=== PATIENT | female | born 2005 | race African-American/Black ===

== ENCOUNTER 2024-05-17 16:41 | Emergency (ER) | payer OTHER, MEDICAID ==
[~2024-05-17] VITALS: Ht 162.6 cm; Wt 60.0 kg
--- NOTE | 2024-05-17 16:48 | ED.PDOC ---
History of Present Illness HPI Comments 19-year-old female with no reported PMHx brought in by EMS presents with a chief complaint of "body pain" x4 months. Patient states that her body is "broken" inside and that her spine is keeping her alive. Patient mentions that this has been going on for about 4 months and states that she was seen for it before in the past and was told that she needs therapy. Patient is tearful upon triage. No other symptoms or modifying factors present at this time. Time Seen by MD: 16:43 Reviewed Notes: Medications, Allergies Allergies: Coded Allergies: NO KNOWN ALLERGIES (Unverified , 05/17/24) Information Source: Patient Mode of Arrival: EMS Severity: Moderate Timing: Months Duration: Intermittent Prehospital treatment: None Past Medical History PAST MEDICAL HISTORY: Denies Surgical History: Denies all surgeries COMMERCIAL INTERNSHIP History: Denies all COMMERCIAL INTERNSHIP Hx Family History Family History: Reviewed,noncontributory to illness Social History Smoker: Non-Smoker Alcohol: Denies ETOH Use Drugs: Marijuana Lives In: Home Constitutional: denies: chills, diaphoresis, fatigue, fever, malaise, sweats, weakness, others EENTM: denies: blurred vision, double vision, ear bleeding, ear discharge, ear drainage, ear pain, ear ringing, eye pain, eye redness, hearing loss, mouth pain, mouth swelling, nasal discharge, nose bleeding, nose congestion, nose pain, photophobia, tearing, throat pain, throat swelling, voice changes, others Respiratory: denies: cough, hemoptysis, orthopnea, SOB at rest, shortness of breath, SOB with excertion, stridor, wheezing, others Cardiovascular: denies: chest pain, dizzy spells, diaphoresis, Dyspnea on exertion, edema, irregular heart beat, left arm pain, lightheadedness, palpitations, PND, syncope, others Gastrointestinal: denies: abdomen distended, abdominal pain, blood streaked bowels, constipated, diarrhea, dysphagia, difficulty swallowing, hematemesis, melena, nausea, poor appetite, poor fluid intake, rectal bleeding, rectal pain, vomiting, others Genitourinary: denies: abnormal vagina bleeding, burning, dyspareunia, dysuria, flank pain, frequency, hematuria, incontinence, pain, , vagina discharge, urgency, others Neurological: denies: dizziness, fainting, headache, left sided numbness, left sided weakness, numbness, paresthesia, pre-existing deficit, right sided numbness, right sided weakness, seizure, speech problems, tingling, tremors, weakness, others Musculoskeletal: reports: muscle pain; denies: back pain, gout, joint pain, joint swelling, muscle stiffness, neck pain, others Integumetry: denies: bruises, change in color, change in hair/nails, dryness, laceration, lesions, lumps, rash, wounds, others Allergic/Immunocompromised: denies: Difficulty Healing, Frequent Infections, Hives, Itching, others Hematologic/Lymphatic: denies: anemia, blood clots, easy bleeding, easy bruising, swollen glands, others Endocrine: denies: excessive hunger, excessive sweating, excessive thirst, excessive urination, flushing, intolerance to cold, intolerance to heat, unexplained weight gain, unexplained weight loss, others Psychiatric: denies: anxiety, bipolar disorder, depression, hopeless, panic disorder, schizophrenia, sleepless, suicidal, others All Other Systems: Reviewed and Negative Physical Exam General Appearance: Moderate Distress HEENT: Normal ENT Inspection, Pharynx Normal, TMs Normal Neck: Full Range of Motion, Non-Tender, Normal, Normal Inspection Respiratory: Chest Non-Tender, Lungs Clear, No Accessory Muscle Use, No Respiratory Distress, Normal Breath Sounds Cardiovascular: No Edema, No JVD, No Murmur, No Gallop, Normal Peripheral Pulses, Regular Rate/Rhythm Breast Exam: Deferred Gastrointestinal: No Organomegaly, Non Tender, No Pulsatile Mass, Normal Bowel Sounds, Soft Genitalia: Deferred Pelvic: Deferred Rectal: Deferred Extremities: No calf tenderness, Normal capillary refill, No pedal edema Musculoskeletal : Apperance: Normal Neurologic: Alert, residential treatment staff II-XII nml as Tested, No Motor Deficits, Normal Affect, Normal Mood, No Sensory Deficits Cerebellar Function: Normal Reflexes: Normal Skin: Dry, Normal Color, Warm Lymphatic: No Adenopathy Was a procedure done? Was a procedure done?: No Differential Dx Considerations may include: Psychiatric behavior, schizophrenia, bipolar disorder X-Ray, Labs, Meds, VS Vital Signs Date Time Temp Pulse Resp B/P (MAP) Pulse Ox O2 Delivery O2 Flow Rate FiO2 05/17/24 17:27 115 22 97 Room Air* 0 21 05/17/24 17:26 98.2 119 22 130/79 (96) 97 98.2 05/17/24 16:46 98.2 126 18 120/71 (87) 98 98.2 Lab Test 05/17/24 17:48 05/17/24 17:10 Range/Units Urine Color Colorless Yellow Urine Clarity Clear Clear Urine pH 5.0 5.0-9.0 Urine Specific Bryant 1.002 1.001-1.035 Urine Protein Negative Negative Urine Ketones Negative Negative Urine Blood Negative Negative /uL Urine Nitrite Negative Negative Urine Bilirubin Negative Negative Urine Urobilinogen Normal Negative mg/dL Urine Leukocyte Esterase Negative Negative /uL Urine RBC <1 0 - 4 /hpf Urine Microscopic WBC 1 0-5 /HPF Urine Squamous Epithelial Cells Few <5 /hpf Urine Bacteria Few H None Seen /hpf Urine Glucose Normal Normal mg/dL Urine Test Negative Negative Urine Opiates Screen Neg NEGATIVE Urine Fentanyl Screen Neg NEGATIVE Urine Barbiturates Screen Neg NEGATIVE Urine Phencyclidine Screen Neg NEGATIVE Urine Amphetamines Screen Neg NEGATIVE Urine Benzodiazepines Screen Neg NEGATIVE Urine Cocaine Screen Neg NEGATIVE Urine Cannabinoids Screen Pos NEGATIVE White Blood Count 11.1 H 4.4-10.8 10^3/uL Red Blood Count 4.31 4.0-5.20 10^6/uL Hemoglobin 13.2 12.2-16.2 g/dL Hematocrit 39.7 36.0-46.0 % Mean Corpuscular Volume 92.0 80.0-100.0 fL Mean Corpuscular Hemoglobin 30.5 28.0-32.0 pg Mean Corpuscular Hemoglobin Concent 33.2 32.0-36.0 g/dL Red Cell Distribution Width 12.9 11.8-14.3 % Platelet Count 262 140-450 10^3/uL Mean Platelet Volume 9.6 6.9-10.8 fL Neutrophils (%) (Auto) 84.5 H 37.0-80.0 % Lymphocytes (%) (Auto) 10.2 10.0-50.0 % Monocytes (%) (Auto) 5.1 0.0-12.0 % Eosinophils (%) (Auto) 0.0 0.0-7.0 % Basophils (%) (Auto) 0.2 0.0-2.0 % Neutrophils # (Auto) 9.4 H 1.6-8.6 10 ^3/uL Lymphocytes # (Auto) 1.1 0.4-5.4 10 ^3/uL Monocytes # (Auto) 0.6 0-1.3 10 ^3/uL Eosinophils # (Auto) 0 0-0.8 10 ^3/uL Basophils # (Auto) 0 0-0.2 10 ^3/uL Nucleated Red Blood Cells 0.1 % Sodium Level 134 L 136-145 mmol/L Potassium Level 3.7 3.5-5.1 mmol/L Chloride Level 101 98-107 mmol/L Carbon Dioxide Level 20 20-31 mmol/L Anion Gap 13 5-15 Blood Urea Nitrogen 14 9-23 mg/dL Creatinine 0.89 0.550-1.02 mg/dL Glomerular Filtration Rate Calc 95 >90 mL/min BUN/Creatinine Ratio 15.7 10.0-20.0 Serum Glucose 107 H 74-106 mg/dL Calcium Level 10.5 H 8.7-10.4 mg/dL Current Medications Medications (Trade) Dose Ordered Sig/Shad Route Start Time Stop Time Status Last Admin Sodium Chloride 1,000 ml @ 1,000 mls/hr Q1H ONCE IVB 05/17/24 17:00 05/17/24 17:59 DC 05/17/24 17:40 Lorazepam (Ativan Inj) 1 mg ONCE ONCE IV 05/17/24 17:00 05/17/24 17:01 DC 05/17/24 17:35 IV Hep-Lock was established The patient was given 1 L bolus of normal saline The patient was given Ativan 1 mg IV push. The patient's urine tox is positive for marijuana The chemistry panel is within normal limits The urine test is negative for infection At this time the patient was being evaluated by the telemedicine psychiatrist The patient has been medically cleared Time of 1ST Reevaluation: 17:13 Reevaluation 1ST: Unchanged Patient Education/Counseling: Diagnosis, Treatment, Prognosis Family Education/Counseling: No Family Present Departure 1 Departure Time of Disposition: 19:02 Impression: Primary Impression: Marijuana use Additional Impression: Psychosis Qualified Codes: F29 - Unspecified psychosis not due to a substance or known physiological condition Disposition: 30 STILL A PATIENT Condition: Fair Critical Care Note Critical Care Time?: No Stability Stability form required: No Heart Score Heart Score: Heart Score Response (Comments) Value History N/A 0 EKG N/A 0 Age N/A 0 Risk Factors N/A 0 Troponin N/A 0 Total 0 I personally scribed for SNEHA SUTTON MD ([email or web address]) on 05/17/24 at 16:48. Electronically submitted by Torey Bain ([email or web address]). SNEHA SUTTON MD May 17, 2024 16:48
[2024-05-17 17:27] VITALS: PULSE 115; RESP 22; O2SAT 97
[2024-05-17 17:31] LABS: Basophils # (auto) 0 10 ^3/uL (0-0.2); Basophils % (auto) 0.2 % (0.0-2.0); Eosinophils # (auto) 0 10 ^3/uL (0-0.8); Hematocrit 39.7 % (36.0-46.0); Hemoglobin 13.2 g/dL (12.2-16.2); Lymphocytes # (auto) 1.1 10 ^3/uL (0.4-5.4); Lymphocytes % (auto) 10.2 % (10.0-50.0); Mean Corpuscular Hemoglobin 30.5 pg (28.0-32.0); Mean Corpuscular Hgb Conc. 33.2 g/dL (32.0-36.0); Monocytes # (auto) 0.6 10 ^3/uL (0-1.3); Monocytes % (auto) 5.1 % (0.0-12.0); Neutrophils # (auto) 9.4 10 ^3/uL (1.6-8.6); Neutrophils % (auto) 84.5 % (37.0-80.0); Nucleated Red Blood Cells % 0.1 %; Platelet Count (auto) 262 10^3/uL (140-450); Red Blood Cells 4.31 10^6/uL (4.0-5.20); Red Cell Distribution Width 12.9 % (11.8-14.3); White Blood Cell 11.1 10^3/uL (4.4-10.8)
[2024-05-17] MEDS: LORazepam 2MG/ML-1ML VIAL IV ONE (17:35)
[2024-05-17 17:36] LABS: Chloride 101 mmol/L (98-107); Potassium 3.7 mmol/L (3.5-5.1)
[2024-05-17 17:37] LABS: Anion Gap 13 (5-15)
[2024-05-17] MEDS: SODIUM CHLORIDE 0.9% 1,000 ML IVB ONE (17:40)
[2024-05-17 17:43] LABS: BUN/Creatinine Ratio 15.7 (10.0-20.0); Blood Urea Nitrogen 14 mg/dL (9-23)
[2024-05-17 17:53] LABS: Calcium 10.5 mg/dL (8.7-10.4); Carbon Dioxide 20 mmol/L (20-31); Glucose 107 mg/dL (74-106); Sodium 134 mmol/L (136-145)
[2024-05-17 18:25] LABS: Urine Bacteria FEW /hpf (None Seen); Urine Blood Negative /uL (Negative); Urine Clarity Clear (Clear); Urine Color Colorless (Yellow); Urine Protein, UAD Negative (Negative); Urine Specific Gravity 1.002 (1.001-1.035); Urine Squamous Epithelial Cell FEW /hpf (<5); Urine Urobilinogen Normal (Negative); Urine WBC 1 /HPF (0-5)
[2024-05-17 18:30] LABS: Cannabinoid Screen, Urine Pos (NEGATIVE)
[2024-05-17 18:38] LABS: Amphetamine Screen, Urine Neg (NEGATIVE); Barbiturate Scree,Urine Neg (NEGATIVE); Benzodiazephine Screen, Urine Neg (NEGATIVE); Cocaine Screen, Urine Neg (NEGATIVE); Opiate Scree,Urine Neg (NEGATIVE); Phencyclidine Screen, Urine Neg (NEGATIVE)
[2024-05-17 21:10] VITALS: PULSE 89; RESP 18; O2SAT 98
--- NOTE | 2024-05-18 02:13 | DVHINCON2 ---
Date of Service if different f: May 18, 2024 Time of Service: 01:16 Consult Consult Note PSYCHIATRY ED NEW CONSULT HPI: 19 yo F pt with no known PPH presents to ED BIBA for safety, psychiatric stabilization and possible med initiation/optimization in setting of anxiety and somatic delusions. Psychiatry consulted for safety evaluation and recommendations in context of current presentation Per pt, reports over past four months, pt has been experiencing worsening body pain and her body is "broken" inside and feels like her body is made out of liquid and she is going to and her spine is keeping her alive and "i am scared to move because my body can snap anytime, i can feel my head breaking" Per brother (at bedside), pt has been experiencing depressed mood, isolative, loss of interest, decreased energy, and amotivation and anxiety symptoms to include excessive worry, rumination/overthinking, restlessness, racing/intrusive thoughts, feeling tensed/nervous, etc. Also intermittent SI that are fleeting with no plan/intent. Reports some interference with daily functioning. Reports primary stress as "my environment" due to arguments with family members Pt currently does not have psychiatrist/therapist out in community although has sought outpt MH services in past. Currently not on any psychotropic agents. No prior psych med trials. Infreq THC use, denies ETOH or IDU [employer] Never , no children, unemployed for past 4 months, lives with extended family members, HS grad, no legal issues, some support system noted (immediate family). Unknown trauma hx. Unknown FH No identifiable medical issues, hx of seizures/TBI, or recent head injuries, NKDA Does not have hx of suicide attempts, SIB/PSG, or prior psych hospitalizations/5150. Denies history of violence, unprovoked aggression, or assaultive behaviors. Denies recent hx of impulsivity, attention seeking behaviors, anger outbursts, emotional dysregulation, mood reactivity or engaging in risky behaviors. Does not have access to firearms. Currently denies SI/HI. Identifies self/family as PPF. No safety concerns noted during encounter. MSE: General Appearance/Behavior: Alert and awake; appears stated age, well developed, fair grooming and hygiene; calm and cooperative, fair eye contact, no PMA/PMR Speech: coherent, rrr Thought Process: linear, logical, bit concrete/limited Thought Content: Abnormal Thoughts and Perceptions: + somatic delusions Homicidality / Violent Thoughts: None Suicidality: adamantly denies SI Hallucinations: denies AVH Delusions: somatic delusions Obsessions /compulsions : None Judgment and Insight: fair/marginal Mood & Affect: "really scared" with mood-congruent, appropriate Orientation: oriented to person, place, time Attention/Concentration: appears intact Memory: grossly intact Language: no unusual or inappropriate language Assessment: 19 yo F pt with no known PPH presents to ED BIBA for safety, psychiatric stabilization and possible med initiation/optimization in setting of anxiety and somatic delusions Currently denies SI/HI/AVH. Pt presents with somatic delusions (see hpi) for past several months. Pt has been medically cleared Not on any psychotropics. No outpt MH services at present Pt will benefit from inpatient psychiatric admission for safety, psychiatric stabilization and possible medication initiation/optimization. Pt willing to transfer to inpt psych hospitalization voluntarily. Consider 5150 hold for DTS ONLY if needed for transfer or if no voluntary beds are available Primary Diagnosis: Psychotic disorder unspecified. R/o Delusional disorder, somatic type Recommend VOL transfer to inpt psych facility for higher level of care per pts request. Consider 5150 hold for DTS ONLY if needed for transfer or if no voluntary beds are available 1:1 sitter is recommended Recommend starting Olanzapine 5 mg bid - first dose now Risks/benefits/alternative treatments discussed, informed consent provided by pt If patient later refuses voluntary hospitalization/ requests to be discharged from ED prior to transfer, please reconsult telepsych services to evaluate for 5150 hold. Pt verbalized understanding and is receptive to above tx plan This case was discussed with ED nurse/provider and all parties in agreement with above tx plan Ney Wilde MD Plan discussed with: Patient NEY WILDE MD May 18, 2024 02:13
--- NOTE | 2024-05-18 03:17 | DVH ---
EXAM: CT HEAD WITHOUT CONTRAST INDICATION: headache TECHNIQUE: CT of the head without intravenous contrast. Radiation Dose : 1. Head: CT Dose: CTDI volume is mGy. Dose-length product is mGy*cm The dose indicators for CT are the volume Computed Tomography (CT) Dose Index (CTDIvol) and the Dose Length Product (DLP), and are measured in units of mGy and mGy-cm, respectively. These indicators are not patient dose, but values generated from the CT scanner acquisition factors. The report includes radiation exposure data for exposures received during this examination. COMPARISON: None FINDINGS: There is no evidence of acute intracranial hemorrhage, extra-axial collection, mass effect, midline s hift, herniation or hydrocephalus. The ventricles, sulci and cisterns are age appropriate. The ugarte-white differentiation is intact. The visualized paranasal sinuses and mastoid air cells are clear. The surrounding soft tissues and osseous structures are unremarkable. IMPRESSION: 1. No acute intracranial abnormality. Radiation optimization: All CT scans at this facility use at least one of these dose optimization anibal hniques: automated exposure control mA and/or kV adjustment per patient size (includes targeted exam s where dose is matched to clinical indication) or iterative reconstruction.
[2024-05-18 07:39] VITALS: PULSE 78; RESP 19; O2SAT 96
[2024-05-18] MEDS: OLANZapine 5 MG TAB PO SCH (09:49)
[2024-05-18 11:10] VITALS: PULSE 84; RESP 16; O2SAT 100
[2024-05-18 19:45] VITALS: PULSE 78; RESP 17; O2SAT 98
[2024-05-19 19:30] VITALS: RESP 15; O2SAT 100
[2024-05-20 22:54] VITALS: RESP 16
[2024-05-21 08:00] VITALS: PULSE 62; RESP 16; O2SAT 98
[2024-05-21 20:11] VITALS: PULSE 91; RESP 18; O2SAT 98
[2024-05-22 07:24] VITALS: PULSE 65; RESP 16; O2SAT 98
--- NOTE | 2024-05-22 12:12 | TELE.CONS ---
PSYCHIATRY REASSESSMENT Date: 05/22/24 1140 S: The patient was seen and evaluated at [facility] ED via telepsychiatry platform. 19 yr old female admitted for possible somatic delusions. She was seen by psychiatrist Ney Wilde on 05/18 and diagnosed with unspecified psychotic disorder r/o delusional disorder and started on Zyprexa 5mg BID and recommended for voluntary admission to [facility]. Today, she reported she feels like her feeling is "getting super bad". She feels like just her spine is holding herself up. She stated she was crying every day for about three months a while back. During that time, she wasn't eating much. She previously worked a mid shift so wasn't eating much. She stated she vaped nicotine and was drinking a lot. She said, it got to the point where she started having headaches. She felt it was from the vaping,but stated she couldn't stop vaping. She noted her stomach also kept hurting. She felt like her stomach was bloated. She noted she was drinking vodka regularly and would get intoxicated frequently. She felt like she had brain fog and continued vaping. In December 2023, she noted she felt like fluid was building up in her leg and didn't know what it was, so she went to the ED and they didn't find out what was happening. She said "This is vey scary and freaks her out." She said it is very uncomfortable and scary and she feels like the ED visits haven't found out what has occurred for her. She said she had a tooth infection which caused the liquids to go to the right side of her head and body. She also feels like whenever she eats, it feels like her body fills with fluid. She also feels something moving around her face but didn't see anything there. She noted that when the liquid moves around, her body feels weak. She feels like over time her body is getting worse. She feels like these feelings are influencing how she does things. She feels overwhelmed and scared and feels like she is breaking things in her body. She has difficulty sleeping. She stated she often feels she would be better off . She lives with mom and brothers in [place]. She reported she has taken the zyprexa and falls asleep. She noted she still feels quite rivera, but feels like it has improved since she was at home. She had started drinking protein shakes before she came into the hospital. MSE: alert and oriented speech-regular rate, rhythm and volume Mood-"super bad" Affect-anxious, congruent. Tht process-linear and goal directed Tht Content-PASSIVE SUICIDAL THOUGHTS. Denied having homicidal ideation. Denied auditory or visual hallucinations. DELUSION THAT BODY IS FILLED WITH LIQUID AND ONLY SPINE IS HOLDING HER UP Insight-poor Judgment-poor Impulse control-fair. Diagnosis: UNSPECIFIED PSYCHOTIC DISORDER F29 Assessment: This 19 yr old female appears to suffer from somatic delusions that liquid is moving around her body. These delusions have led her to making poor decisions and she appears gravely disabled as a result. She may benefit from admission to a behavioral health unit and agrees to voluntary admission, but meets criteria for involuntary hold on basis of grave disability. Plan: 1. Transfer to behavioral health unit for further observation, evaluation and treatment. 2. Legal-voluntary, but meets criteria for involuntary hold on basis of grave disability. If patient is refusing hospitalization or no voluntary beds are available, please evaluate for 5150 hold. 3. Medications- continue Zyprexa 5mg BID 4. Case discussed with ED social media content manager, Sarabjit Rutherford, and ED physician. 5. Please contact psychiatry if further follow up or reevaluation is desired. Yes MARTHA LEVY MD May 22, 2024 11:07
--- NOTE | 2024-05-23 19:49 | TELE.CONS ---
PSYCHIATRY REASSESSMENT Date: 05/23/241919 S: The patient was seen and evaluated at [facility] ED via telepsychiatry platform. 19 yr old female admitted for possible somatic delusions. She was seen by psychiatrist Ney Wilde on 05/[address] Seamus Womack on 05/22 and diagnosed with unspecified psychotic disorder r/o delusional disorder and started on Zyprexa 5mg BID and recommended for voluntary admission to [facility]. Today, she stated she has [employer]. She had previously been known to [employer], but apparently mother contacted her today and informed her she has [facility]. She is interested in finding out if [facility] has a program to address her delusions and feelings of having water in her body. She reported she would stay to speak with public health social worker to see if [facility] can arrange inpatient hospitalization. She noted she feels very uncomfortable feeling that only her spine is holding up her body and with the sensation that her body is made up of water. MSE: alert and oriented speech-regular rate, rhythm and volume Mood-"down" Affect-depressed, congruent. Tht process-linear and goal directed Tht Content-PASSIVE SUICIDAL THOUGHTS. Denied having homicidal ideation. Denied auditory or visual hallucinations. DELUSION THAT BODY IS FILLED WITH LIQUID AND ONLY SPINE IS HOLDING HER UP Insight-poor Judgment-poor Impulse control-fair. Diagnosis: UNSPECIFIED PSYCHOTIC DISORDER F29 Assessment: This 19 yr old female appears to suffer from somatic delusions that liquid is moving around her body. These delusions have led her to making poor decisions and she appears gravely disabled as a result. She may benefit from admission to a behavioral health unit and agrees to voluntary admission, but meets criteria for involuntary hold on basis of grave disability. Plan: 1. Transfer to behavioral health unit for further observation, evaluation and treatment. If [place] inpatient is not available, she may be appropriate for outpatient services. RECOMMEND RECONSULT SEED ANALYST AND INFORM THEM OF THE [employer]URANCE. 2. Legal-voluntary, but meets criteria for involuntary hold on basis of grave disability. If patient is refusing hospitalization or no voluntary beds are available, please evaluate for 5150 hold. 3. Medications- continue Zyprexa 5mg BID 4. Case discussed with ED RN. 5. Please contact psychiatry if further follow up or reevaluation is desired. Yes Yes SEAMUS WOMACK MD May 23, 2024 19:49
[2024-05-23 21:30] VITALS: PULSE 76; RESP 18; O2SAT 97
[2024-05-24 07:30] VITALS: PULSE 91; RESP 16; O2SAT 100
--- NOTE | 2024-05-24 15:01 | ED.PDOC ---
Departure 1 Departure Time of Disposition: 15:00 (Was made aware that registration discovered today that patient has a [place] patient[place] authorization [id number] is still psychotic. [place] will work on placement for patient.) Impression: Primary Impression: Psychosis Qualified Codes: F29 - Unspecified psychosis not due to a substance or known physiological condition Additional Impression: Marijuana use Disposition: [facility] Condition: Serious BENTLEY KEBEDE MD May 24, 2024 15:01
[2024-05-24 18:43] VITALS: BP 104/84; PULSE 97; RESP 16; TEMP 97.8; O2SAT 98
== END 2024-05-24 19:14 | disposition short-term general hospital (02) ==
LOC: EDBD 16:41 → ER 16:43
DX: F29 Unspecified psychosis not due to a substance or known physiological condition (principal); F12.90 Cannabis use, unspecified, uncomplicated; M79.10 Myalgia, unspecified site; Z32.02 Encounter for pregnancy test, result negative; Z79.899 Other long term (current) drug therapy
CPT/HCPCS: 36415; 70450; 80048; 80307; 81001; 81025; 85025; 96361; 96374; 99285; J2060; J7030